=== PATIENT | male | born 1955 | race Hispanic/Latino ===

== ENCOUNTER 2019-01-14 20:36 | Emergency (ER) | payer OTHER ==
[2019-01-14] MEDS ORDERED: BENADRYL IV ONE (20:44)
[2019-01-14] MEDS ORDERED: PEPCID IV ONE (20:44)
[2019-01-14] MEDS ORDERED: NACL 0.9% 1000 ML 1,000 ML IV ONE (20:44)
[2019-01-14] MEDS ORDERED: DECADRON IV ONE (20:44)
--- NOTE | 2019-01-14 20:44 | Emergency Department Report ---
Blank Doc - Documentation Documentation: This is a 63-year-old male that presents with facial swelling, rash, itching a fter being bite by the bees. Exam: angioedema to lips. Uvula midline. No VAMSI. This initial assessment/diagnostic orders/clinical plan/treatment(s) is/are subject to change based on patient's health status, clinical progression and re- assessment by fellow clinical providers in the ED. Further treatment and workup at subsequent clinical providers discretion. Patient/guardians urged not to elope from the ED as their condition may be serious if not clinically assessed and managed. Initial orders include: 1- Patient sent to MAIN ED for further evaluation and treatment 2- treatment with steroids and benadryl 3- charge nurse notified to have patient brought back [facility]
[2019-01-14] MEDS ORDERED: TYLENOL PO ONE (22:33)
[2019-01-14 23:28] VITALS: BP 114/64
--- NOTE | 2019-01-14 23:46 | Emergency Department Report ---
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 Patient complains of swelling to his face as well as pain in his bilateral ears. Patient denies any shortness of breath or difficulty swallowing the current time. Patient states that this occurred 1 hour prior to presentation to the ER. Patient did not use a EpiPen prior to arrival either. Patient has no new foods, soaps or detergents. Patient has had no exposure to lisinopril therapy either. Patient is on losartan therapy for his hypertension. Severity scale (0 -10): 5 - Related Data Previous Rx's Medication Instructions Recorded Last Taken Type Famotidine [Pepcid] 20 mg PO BID #60 tablet 01/14/19 Unknown Rx diphenhydrAMINE [Benadryl CAP] 25 mg PO Q6HR PRN #20 capsule 01/14/19 Unknown Rx predniSONE [Deltasone] 40 mg PO QDAY #10 tab 01/14/19 Unknown Rx Allergies Allergy/AdvReac Type Severity Reaction Status Date / Time No Known Allergies Allergy Unverified 01/14/19 20:37 ED Review of Systems ROS: Stated complaint: BEE STING Other details as noted in HPI Constitutional: denies: chills, fever Eyes: denies: eye pain, eye discharge, vision change ENT: denies: ear pain, throat pain Respiratory: denies: cough, shortness of breath, wheezing Cardiovascular: denies: chest pain, palpitations Endocrine: no symptoms reported Gastrointestinal: denies: abdominal pain, nausea, diarrhea Genitourinary: denies: urgency, dysuria Musculoskeletal: denies: back pain, joint swelling, arthralgia Skin: denies: rash, lesions Neurological: denies: headache, weakness, paresthesias Psychiatric: denies: anxiety, depression Hematological/Lymphatic: denies: easy bleeding, easy bruising ED Past Medical Hx - Social History Smoking Status: Never Smoker Substance Use Type: None - Medications Home Medications: Home Medications Medication Instructions Recorded Confirmed Last Taken Type Famotidine [Pepcid] 20 mg PO BID #60 tablet 01/14/19 Unknown Rx diphenhydrAMINE [Benadryl CAP] 25 mg PO Q6HR PRN #20 capsule 01/14/19 Unknown Rx predniSONE [Deltasone] 40 mg PO QDAY #10 tab 01/14/19 Unknown Rx ED Physical Exam - General Limitations: No Limitations General appearance: alert, other (uncomfortable; awake) - Head Head exam: Present: atraumatic, normocephalic - Eye Eye exam: Present: normal appearance - ENT ENT exam: Present: mucous membranes moist, other (mild swelling in bilateral pinna region; Patient has swelling in right maxilla region and right upper lip region; no tongue swelling; no uvula swelling) - Neck Neck exam: Present: normal inspection - Respiratory Respiratory exam: Present: normal lung sounds bilaterally. Absent: respiratory distress - Cardiovascular Cardiovascular Exam: Present: regular rate, normal rhythm. Absent: systolic murmur, diastolic murmur, rubs, gallop - GI/Abdominal GI/Abdominal exam: Present: soft, normal bowel sounds - Rectal Rectal exam: Present: deferred - Extremities Exam Extremities exam: Present: normal inspection - Back Exam Back exam: Present: normal inspection - Neurological Exam Neurological exam: Present: alert, oriented X3 - Psychiatric Psychiatric exam: Present: normal affect, normal mood - Skin Skin exam: Present: warm, dry, intact, normal color. Absent: rash ED Course Vital Signs 01/14/19 01/14/19 20:40 23:26 Temperature 97.7 F Pulse Rate 76 61 Respiratory 18 15 Rate Blood Pressure 132/67 Blood Pressure 114/64 [Right] O2 Sat by Pulse 97 100 Oximetry ED Medical Decision Making - Medical Decision Making Patient is in no acute distress. Patient states that he feels improved. Patient to be discharged to follow up with PCP. Patient be given Benadryl, prednisone and Pepcid. Upon discharge. - Differential Diagnosis Allergic Reaction; Bee Sting; Critical care attestation.: If time is entered above; I have spent that time in minutes in the direct care of this critically ill patient, excluding procedure time. ED Disposition Clinical Impression: Allergic reaction, Bee sting allergy Disposition: DC-01 TO HOME OR SELFCARE Is pt being admited?: No Does the pt Need Aspirin: No Condition: Stable Instructions: Insect Bite or Sting (ED), Anaphylaxis (ED) Prescriptions: diphenhydrAMINE [Benadryl CAP] 25 mg PO Q6HR PRN #20 capsule PRN Reason: Anaphylaxis predniSONE [Deltasone] 40 mg PO QDAY #10 tab Famotidine [Pepcid] 20 mg PO BID #60 tablet Referrals: JEMMA BACA MD [Primary Care Provider] - 3-5 Days Forms: Work/School Release Form(ED) Time of Disposition: 23:48 Print Language: ROMANSH
== END 2019-01-14 23:26 | disposition home or self-care (01) ==
LOC: ED 20:36
DX: T63.441A Toxic effect of venom of bees, accidental (unintentional), initial encounter (principal); R22.0 Localized swelling, mass and lump, head; Y92.89 Other specified places as the place of occurrence of the external cause
CPT/HCPCS: 96374; 96375; 99282; J1100; J1200; J7030